=== PATIENT | female | born 1985 | race Caucasian/White ===

== ENCOUNTER 2018-06-16 21:53 | Emergency (ER) | payer OTHER ==
[~2018-06-16] VITALS: Ht 152.4 cm; Wt 56.7 kg
[2018-06-17] MEDS ORDERED: GILTUSS TR TAB1 EACH PO (03:53)
[2018-06-17] MEDS ORDERED: DOLOGESIC 500-1 EACH PO (03:53)
== END 2018-06-17 04:24 | disposition home or self-care (01) ==
LOC: ER 21:53
DX: B34.9 Viral infection, unspecified (principal); J11.1 Influenza due to unidentified influenza virus with other respiratory manifestations